=== PATIENT | female | born 1975 | race Caucasian/White ===

== ENCOUNTER 2020-07-13 11:09 | Emergency (ER) | payer MEDICAID, SELFPAY ==
[2020-07-13 11:18] VITALS: BP 162/101; PULSE 90; RESP 16; TEMP 36.8; O2SAT 95
--- NOTE | 2020-07-13 11:36 | ED.GENADUL_ITS ---
Discharge Plan Disposition Patient Disposition: HOME Condition: Stable Discharge Details Clinical Impression: Cough Primary Care Provider: Bennett Kebede ED Provider: Keenan Wiggins Home Meds and New Rx's Prescriptions: New prednisone 20 mg tablet 60 mg PO DAILY 4 Days Qty: 12 RF: 0 Continued methadone 10 mg/mL Concentrate 96 mg PO DAILY RF: 0 carisoprodol 350 mg Tablet 350 mg PO DAILY RF: 0 gabapentin 600 mg Tablet 600 mg PO TID RF: 0 metoprolol succinate 50 mg Tablet Extended Release 24 Hr 50 mg PO DAILY RF: 0 famotidine 40 mg Tablet 40 mg PO DAILY PRNRF: 0 dextroamphetamine-amphetamine [Adderall] 20 mg Tablet 20 mg PO TID RF: 0 montelukast 10 mg Tablet 10 mg PO DAILY RF: 0 zolpidem [Ambien] 5 mg Tablet 5 mg PO .QHS RF: 0 metoprolol succinate 25 mg Tablet Extended Release 24 Hr 25 mg PO DAILY RF: 0 albuterol sulfate [ProAir HFA] 90 mcg/actuation Hfa Aerosol Inhaler 2 puff INHALATION .Q4-6HRS PRNRF: 0 lamotrigine 100 mg Tablet 100 mg PO .QHS RF: 0 diazepam 5 mg Tablet 5 mg PO DAILY PRNRF: 0 buspirone 15 mg Tablet 15 mg PO TID RF: 0 Dulera 200-5 mcg/actuation Hfa Aerosol Inhaler 2 puff INHALATION BID RF: 0 Discharge Instructions Instructions: Hypokalemia (ED), Acute Cough (ED) Additional Instructions: follow up with your primary care provider within a week and have your potassium level rechecked if you feel more ill, have worsening shortness of breath return to the emergency department Medical Decision Making 45 yo female comes in with complaint of not feeling well for a day and feeling as though she has had a fever though hasn't checked her temperature. She denies travel, abdominal pain, rashes, and denies alcohol or drug use, does smoke. She appears anxious on exam and is speaking in full sentences in no respiratory distress. Has very mild apical wheezing otherwise clear lungs without murmurs. Suspect part of her feeling unwell could be from her anxiety based on her exam. Will obtain cxr to evaluate for infiltrate, evaluate for anemia and electrolyte disorders, and also obtain covid19 and influenza testing. Has no fever here and appears well, doubt sepsis, director of student life infection, intrabdominal or spinal pathology. pt remains stable, labs show mild low potassium and mild increase in hgb which could be from mild dehydration. Xray and flu negative. Will d/c and advised to f/u with pcp with return precautions Differential Diagnosis Differential Diagnosis: bronchitis, pna, influenza, covid19 Imaging Data Radiologic Study: Attestation: I personally reviewed and interpreted this imaging study as follows: Imaging: X-Ray Radiologist's impression: no acute findings Lab Data Lab results reviewed: Yes I reviewed the patient's lab results. HPI General Mode of arrival: ambulatory . Date/Time Provider Initiated Documentation: 07/13/20 11:12 . Limitations to Documentation: no limitations . Information obtained by: patient . History of Present Illness 45 year old F presents to the emergency department with the chief complaint of not feeling well, described as mild, Patient started experiencing this day(s) (1) and it has been constant. No relieving factors improve symptom(s), No exacerbating factors reported . Patient notes cough. Patient did receive the following treatments prior to arrival, none Related Data Home Medications Medication Instructions Recorded Confirmed Dulera 2 puff INHALATION BID 07/13/20 07/13/20 albuterol sulfate [ProAir HFA] 2 puff INHALATION .Q4-6HRS PRN 07/13/20 07/13/20 buspirone 15 mg PO TID 07/13/20 07/13/20 carisoprodol 350 mg PO DAILY 07/13/20 07/13/20 dextroamphetamine-amphetamine 20 mg PO TID 07/13/20 07/13/20 [Adderall] diazepam 5 mg PO DAILY PRN 07/13/20 07/13/20 famotidine 40 mg PO DAILY PRN 07/13/20 07/13/20 gabapentin 600 mg PO TID 07/13/20 07/13/20 lamotrigine 100 mg PO .QHS 07/13/20 07/13/20 methadone 96 mg PO DAILY 07/13/20 07/13/20 metoprolol succinate 25 mg PO DAILY 07/13/20 07/13/20 metoprolol succinate 50 mg PO DAILY 07/13/20 07/13/20 montelukast 10 mg PO DAILY 07/13/20 07/13/20 prednisone 60 mg PO DAILY 4 Days #12 tab 07/13/20 zolpidem [Ambien] 5 mg PO .QHS 07/13/20 07/13/20 Previous Rx's Medication Instructions Recorded prednisone 60 mg PO DAILY 4 Days #12 tab 07/13/20 Allergies Allergy/AdvReac Type Severity Reaction Status Date / Time bee Allergy Uncoded 07/13/20 11:23 General Stated Complaint: GenMedical MILLICENT: 3 Review of Systems All systems reviewed & are unremarkable except as noted in HPI and below Constitutional Constitutional: Denies chills and Denies weakness Cardiovascular Cardiovascular: Denies chest pain and Denies dyspnea Respiratory Respiratory: Denies dyspnea Gastrointestinal Gastrointestinal: Denies abdominal pain, Denies nausea and Denies vomiting Genitourinary Genitourinary: Denies dysuria Musculoskeletal Musculoskeletal: Denies joint swelling Integumentary/Breasts Skin/Breast: Denies rash Neurologic Neurologic: Denies weakness Psychiatric Psychiatric: Denies depression PFSH Social History Smoking/Tobacco Use Status: Current every day Tobacco Type: cigarettes Alcohol Intake: never Substance use type: does not use Exam Const General: anxious Orientation: alert HENMT Head: normal to inspection Ears: external ears normal General nose exam: external nose normal Mouth: moist mucous membranes Eyes General: appearance normal, both eyes and all related structures Neck Neck: normal visual inspection Resp Effort & Inspection: normal respiratory effort and able to speak in complete sentences Cardio Rate: regular rate Skin General skin exam: no rashes or lesions noted Neuro General: patient alert and patient oriented x3 Extrem General: normal to inspection Psych Mental Status: mental status grossly normal Course Vital Signs Vital signs: Vital Signs Temperature 36.8 C 07/13/20 11:18 Pulse 90 07/13/20 11:18 Respiratory Rate 16 07/13/20 11:18 Blood Pressure 162/101 H 07/13/20 11:18 Pulse Oximetry 95 07/13/20 11:18 Temperature 36.8 C 07/13/20 11:18 Temperature Source Oral 07/13/20 11:18 Pulse 90 07/13/20 11:18 Respiratory Rate 16 07/13/20 11:18 Respiratory Effort Non-Labored 07/13/20 11:18 Blood Pressure 162/101 H 07/13/20 11:18 Blood Pressure Position Sitting 07/13/20 11:18 Pulse Oximetry 95 07/13/20 11:18 Oxygen Delivery Method Room Air 07/13/20 11:18 Oxygen Flow Rate 0 07/13/20 11:18 Pain Level 0 07/13/20 11:18
[2020-07-13] MEDS: predniSONE 20 MG TAB 60 MG PO (11:45)
--- NOTE | 2020-07-13 11:55 | DI.RAD_ITS ---
EXAM: XR PORTABLE CHEST AP CLINICAL HISTORY: cough. TECHNIQUE: 2D digital imaging was performed. COMPARISON: No exams were available for comparison FINDINGS: LUNGS: Clear. No pleural abnormality seen. HEART: Normal. MEDIASTINUM: Normal. OTHER FINDINGS: None. IMPRESSION: No acute pulmonary findings. DATA REPOSITORY: RADIATION DOSE DELIVERED: Total DLP
[2020-07-13 11:58] VITALS: RESP 16
[2020-07-13 12:07] LABS: Abs Immature Grans 0.03 10^3/uL (0.0-0.06); Absolute Basophil Count 0.07 10^3/uL (0.0-0.2); Absolute Lymphocyte Count 1.71 10^3/uL (1.2-3.4); Absolute Monocyte Count 0.54 10^3/uL (0.1-0.8); Absolute Neutrophil Count 6.57 10^3/uL (1.2-6.7); Basophils % 0.8; Eosinophils % 1.1; HCT 49.7 % (36.0-46.0); HGB 16.4 g/dL (11.2-15.7); Immature Grans % 0.3; MCH 32.1 pg (27.0-33.0); MCV 97.3 fL (80-95); MPV 9.8 fL (8.0-11.0); Neutrophils % 72.8; Nucleated RBC 0 %; Platelet Count 227 10^3/uL (130-400); RBC 5.11 10^6/uL (3.93-5.22); RDW 12.3 % (11.7-14.6); RDW-SD 44.4 fL; WBC 9.02 10^3/uL (4.4-10.8)
--- NOTE | 2020-07-13 12:07 | DI.VRAD_ITS ---
PROCEDURE INFORMATION: Exam: XR Chest, 1 View Exam date and time: 07/13/2020 11:42 AM Age: 45 years old Clinical indication: Cough TECHNIQUE: Imaging protocol: XR of the chest Views: 1 view. COMPARISON: No relevant prior studies available. FINDINGS: Lungs: The lungs are normally expanded and clear. Pleural space: Normal. Heart/Mediastinum: Normal heart and cardiomediastinal silhouette. Vasculature: Normal pulmonary vessel caliber. Normal aorta. Bones/joints: The bones are intact. IMPRESSION: No acute disease or suspicious finding. Dictated and Authenticated by: Jermain Cifuentes MD. Ordering:KIMBERLYN Hussein MD
[2020-07-13 12:20] LABS: ALT 25 U/L (14-59); AST 37 U/L (15-37); Albumin 4.3 g/dL (3.4-5.0); Alkaline Phosphatase 113 U/L (46-116); Anion Gap 4.9 mmol/L (3-11); BUN 14 mg/dL (7-18); Bilirubin, Total 0.6 mg/dL (0.2-1.0); CO2 34.1 mmol/L (21.0-32.0); CREATININE 1.04 mg/dL (0.55-1.02); Calcium 9.7 mg/dL (8.5-10.1); Chloride 99 mmol/L (98-107); Glucose 105 mg/dL (74-106); Potassium 3.1 mmol/L (3.5-5.1); Sodium 138 mmol/L (136-145); Total Protein 8.2 g/dL (6.4-8.2)
[2020-07-13 12:46] VITALS: BP 174/102; PULSE 83; RESP 16; O2SAT 98
[2020-07-15 23:31] LABS: Patient Race White; SARS-CoV-2 RNA Undetected (Undetected); SARS-CoV-2 Specimen Source Nasopharynx
--- NOTE | 2020-07-16 09:21 | NUR.NOTE ---
07/16/20 @ 0920. mother to have patient call ed for test results.
--- NOTE | 2020-07-18 10:08 | NUR.NOTE ---
Nursing Note: Left VM for pt to call [facility] @ [phone] for results. No answer on home, cell, or mother's phone number.
== END 2020-07-13 12:51 | disposition home or self-care (01) ==
LOC: ER 12:53
PROVIDERS: Emergency Provider Emergency Medicine; PCP Internal Medicine
DX: R05 Cough (principal); E87.6 Hypokalemia; E86.0 Dehydration; F17.210 Nicotine dependence, cigarettes, uncomplicated; Z03.818 Encounter for observation for suspected exposure to other biological agents ruled out
CPT/HCPCS: 36415; 80053; 87449; 99284; U0003; 71045; 85025; J7512

== ENCOUNTER 2021-09-07 14:59 | Emergency (ER) | payer MEDICAID, SELFPAY ==
[2021-09-07 15:14] VITALS: BP 135/98; PULSE 72; RESP 20; TEMP 36.6; O2SAT 96
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
== END 2021-09-07 17:11 | disposition home or self-care (01) ==
PROVIDERS: Emergency Provider Nurse Practitioner Family; PCP Internal Medicine
DX: F32.A Depression, unspecified (principal); F41.9 Anxiety disorder, unspecified; F43.10 Post-traumatic stress disorder, unspecified
CPT/HCPCS: 99284; 99283

== ENCOUNTER 2021-09-15 15:01 | Emergency (ER) | payer MEDICAID, SELFPAY ==
[2021-09-15 15:08] VITALS: BP 154/102; PULSE 70; RESP 10; TEMP 37.1; O2SAT 100
--- NOTE | 2021-09-15 15:20 | ED.GENADUL_ITS ---
Discharge Plan Disposition Patient Disposition: HOME Condition: Stable Discharge Details Clinical Impression: Encounter for medication refill Primary Care Provider: Sameera Augustine ED Provider: Macho Sinclair Home Meds and New Rx's Prescriptions: New carisoprodol 350 mg tablet 350 mg PO QDAY 7 Days Qty: 7 RF: 0 diazepam 5 mg tablet 5 mg PO QHS PRN (Reason: anxiety) 7 Days Qty: 7 RF: 0 dextroamphetamine-amphetamine 20 mg tablet 20 mg PO BID 7 Days Qty: 14 RF: 0 gabapentin 600 mg tablet 600 mg PO TID 7 Days Qty: 21 RF: 0 Continued methadone 10 mg/mL Concentrate 96 mg PO DAILY RF: 0 famotidine 40 mg Tablet 40 mg PO DAILY PRNRF: 0 montelukast 10 mg Tablet 10 mg PO DAILY RF: 0 metoprolol succinate 25 mg Tablet Extended Release 24 Hr 25 mg PO DAILY RF: 0 albuterol sulfate [ProAir HFA] 90 mcg/actuation Hfa Aerosol Inhaler 2 puff INHALATION .Q4-6HRS PRNRF: 0 buspirone 15 mg Tablet 15 mg PO TID RF: 0 Dulera 200-5 mcg/actuation Hfa Aerosol Inhaler 2 puff INHALATION BID RF: 0 ipratropium-albuterol 0.5 mg-3 mg(2.5 mg base)/3 mL Solution For Nebulization INHALATION .Q6HRS PRNRF: 0 rizatriptan 10 mg Tablet 10 mg PO PRN PRNRF: 0 No Action gabapentin 600 mg Tablet 600 mg PO TID RF: 0 metoprolol succinate 50 mg Tablet Extended Release 24 Hr 50 mg PO DAILY RF: 0 zolpidem [Ambien] 5 mg Tablet 5 mg PO .QHS RF: 0 diazepam 5 mg tablet 5 mg PO QHS PRN (Reason: anxiety) Qty: 7 RF: 0 Discharge Instructions Additional Instructions: Follow-up with on September 22 as planned. Continue your routine medications. Medical Decision Making 46-year-old female presents for concerned that she is about to run out of her medications. She has moved from [place] to [facility] and has follow-up to establish care with Dr. Daniel on September 22. She requests refills of Carisprodol, Adderall, gabapentin, diazepam. We discussed the importance of her following up with Dr. Cochran and no longer utilizing the ER for medication refill. Nonetheless, I do feel is reasonable to continue her on her longstanding medications for this 1 week period. HPI General Mode of arrival: ambulatory . Date/Time Provider Initiated Documentation: 09/15/21 15:02 . Limitations to Documentation: no limitations . Information obtained by: patient . History of Present Illness 46 year old F presents to the emergency department with the chief complaint of Out of medications, primary care follow-up on September 22. no distress., described as similar to prior episodes, No relieving factors improve symptom(s), Patient notes no other symptoms.. Patient did receive the following treatments prior to arrival, none Related Data Home Medications Medication Instructions Recorded Confirmed Dulera 2 puff INHALATION BID 07/13/20 09/15/21 albuterol sulfate [ProAir HFA] 2 puff INHALATION .Q4-6HRS PRN 07/13/20 09/15/21 buspirone 15 mg PO TID 07/13/20 09/15/21 famotidine 40 mg PO DAILY PRN 07/13/20 09/15/21 gabapentin 600 mg PO TID 07/13/20 09/15/21 ipratropium-albuterol ml INHALATION .Q6HRS PRN 07/13/20 methadone 96 mg PO DAILY 07/13/20 09/15/21 metoprolol succinate 25 mg PO DAILY 07/13/20 09/15/21 metoprolol succinate 50 mg PO DAILY 07/13/20 09/15/21 montelukast 10 mg PO DAILY 07/13/20 09/15/21 rizatriptan 10 mg PO PRN PRN 07/13/20 09/15/21 zolpidem [Ambien] 5 mg PO .QHS 07/13/20 09/07/21 diazepam 5 mg PO QHS PRN #7 tab 09/07/21 09/15/21 carisoprodol 350 mg PO QDAY 7 Days #7 tab 09/15/21 dextroamphetamine-amphetamine 20 mg PO BID 7 Days #14 tab 09/15/21 diazepam 5 mg PO QHS PRN 7 Days #7 tab 09/15/21 gabapentin 600 mg PO TID 7 Days #21 tab 09/15/21 Previous Rx's Medication Instructions Recorded diazepam 5 mg PO QHS PRN #7 tab 09/07/21 carisoprodol 350 mg PO QDAY 7 Days #7 tab 09/15/21 dextroamphetamine-amphetamine 20 mg PO BID 7 Days #14 tab 09/15/21 diazepam 5 mg PO QHS PRN 7 Days #7 tab 09/15/21 gabapentin 600 mg PO TID 7 Days #21 tab 09/15/21 Allergies Allergy/AdvReac Type Severity Reaction Status Date / Time bee venom protein (honey bee) Allergy Swelling/Ed Unverified 09/15/21 15:13 sage General Stated Complaint: GenMedical MILLICENT: 4 Review of Systems Narrative: Denies illness. No mood disruption. 4 systems reviewed and otherwise negative PFSH All Active Problems (Updated 09/15/21 @ 15:23 by Macho Sinclair MD) Depression (Chronic) Encounter for medication refill (Acute) Social History Smoking/Tobacco Use Status: Current every day Tobacco Type: cigarettes Smoking risk assessment performed?: Yes Alcohol Intake: never Drug use: Daily Substance use type: marijuana Do you feel safe at home: Yes Do you feel safe in your relationship?: Yes Exam Narrative Exam Narrative: GEN: awake, alert, oriented 3. Pleasant, well groomed, interactive. HEAD: Normocephalic, atraumatic EYES: PERRL, EOMI NECK: Full ROM CHEST/RESP: No respiratory distress EXT: Full ROM Neuro: Grossly normal neurologic exam, conversant, interactive. Psych: Speech fluent, thoughts congruent, affect normal Course Vital Signs Vital signs: Vital Signs Temperature 37.1 C 09/15/21 15:08 Pulse 70 09/15/21 15:08 Respiratory Rate 10 L 09/15/21 15:08 Blood Pressure 154/102 H 09/15/21 15:08 Pulse Oximetry 100 09/15/21 15:08 Temperature 37.1 C 09/15/21 15:08 Temperature Source Temporal Artery Scan 09/15/21 15:08 Pulse 70 09/15/21 15:08 Respiratory Rate 10 L 09/15/21 15:08 Respiratory Effort Non-Labored 09/15/21 15:11 Blood Pressure 154/102 H 09/15/21 15:08 Blood Pressure Position Sitting 09/15/21 15:08 Pulse Oximetry 100 09/15/21 15:08 Oxygen Delivery Method Room Air 09/15/21 15:08 Oxygen Flow Rate 0 09/15/21 15:08 Pain Level 0 09/15/21 15:08
== END 2021-09-15 15:34 | disposition home or self-care (01) ==
PROVIDERS: Emergency Provider Emergency Medicine; PCP Internal Medicine
DX: F32.A Depression, unspecified (principal)
CPT/HCPCS: 99283

== ENCOUNTER 2022-02-28 16:09 | Emergency (ER) | payer MEDICAID, SELFPAY ==
[2022-02-28 16:14] VITALS: BP 156/107; PULSE 68; RESP 16; TEMP 36.9; O2SAT 96
--- OUTSIDE RECORDS SUMMARY | 2022-02-28 16:20 | XMS_ITS | CCD ---
:1975 Author Care Team Providers Name Role Phone KRISTIN HADDAD Attending Physician Unavailable TAWANNA SCHWARTZ Er Physician 1 Unavailable RE Willams Registered Nurse Unavailable VAMSI Castellon Registered Nurse Unavailable Vital Signs Vital Sign Value Unit Date/Time Recent/Initial? BMI (Body Mass Index) 19.99 kg/m^2 08/20/2021 18:38 In itial VS Weight Measured 105.82 lbs 08/20/2021 18:38 Initial VS Height 61 in 08/20/2021 18:38 Initial VS BSA (Body Surface Area) 1.44 m^2 08/20/2021 18:38 Initial VS BP Systolic 160 mmHg 08/20/2021 18:38 Initial VS BP Diastolic 89 mmHg 08/20/2021 18:38 Initial VS Heart Rate 62 bpm 08/20/2021 18:38 Initial VS O2 % BldC Oximetry 98 % 08/20/2021 18:38 Initi al VS Body Temperature 36.8 degrees 08/20/2021 18:38 Initial VS Allergies Allergy Code Allergy Type Reaction Status No Known Environmental 0 No known environmental Active Allergies allergies No Known Drug Allergies 0 No known drug allergies Active Procedures Unknown or Not Available. History of Immunizations Unknown or Not Available. Problems Problem Code Start Date Resolved Date Status PTSD [id number] 08/20/2021 Resolved Anxiety [id number] 08/20/2021 Resolved Results Unknown or Not Available. Active Medications Medications Administered During Visit Medication Dose Units Frequency Route Date/Time of L ast Dose HydrOXYzine PAMOATE CAPSULE: 50 MG X1 PO 08/20/2021 19:26 25MG Encounters Encounter Diagnosis Diagnosis Code Start Date Adjustment disorder, unspecified [id number] Social History Smoking Status Code Start Date End Date Unknown if ever smoked [id number] Patient Decision Aids Unknown or Not Available. Discharge Instructions You were admitted to [facility] on 08/20/2021 18:34 with a principal diagnosis of Adjustment disorder, unspecified You were discharged from [facility] on 08/20/2021 20:28 Should you have any questions prior to d ischarge, please contact a member of your healthcare team. If you have left the ho spital and have any questions, please contact your primary care physician. Chief Complaint and Reason For Visit Chief Complaint Date of Onset DETOX AND EVAL Function Status Unknown or Not Available. Plan of Care Unknown or Not Available. Referral/Transition of Care Unknown or Not Available.
[2022-02-28 16:25] VITALS: RESP 16
--- NOTE | 2022-02-28 16:30 | DI.RAD_ITS ---
Exam(s) XR PORTABLE CHEST AP EXAM: XR PORTABLE CHEST AP CLINICAL HISTORY: cough TECHNIQUE: 2D digital imaging was performed. COMPARISON: CR,XR XR PORTABLE CHEST AP from 07/13/2020 FINDINGS: LUNGS: Clear. No pleural abnormality seen. HEART: Normal. AORTA: Normal. BONES: Unremarkable for age. Soft tissues: Unremarkable. IMPRESSION: No acute findings. DATA REPOSITORY: RADIATION DOSE DELIVERED:
--- NOTE | 2022-02-28 16:37 | ED.GENADUL_ITS ---
Discharge Plan Disposition Patient Disposition: HOME Condition: Stable Discharge Details Clinical Impression: Wheezing, Cough Primary Care Provider: Reddy Cochran ED Provider: Keenan Wiggins Home Meds and New Rx's Prescriptions: New doxycycline hyclate 100 mg tablet 100 mg PO BID Qty: 14 0RF prednisone 20 mg tablet 60 mg PO DAILY 4 Days Qty: 12 0RF Continued methadone 10 mg/mL Concentrate 96 mg PO DAILY gabapentin 600 mg Tablet 600 mg PO TID metoprolol succinate 50 mg Tablet Extended Release 24 Hr 50 mg PO DAILY famotidine 40 mg Tablet 40 mg PO DAILY PRN montelukast 10 mg Tablet 10 mg PO DAILY metoprolol succinate 25 mg Tablet Extended Release 24 Hr 25 mg PO DAILY albuterol sulfate [ProAir HFA] 90 mcg/actuation Hfa Aerosol Inhaler 2 puff INHALATION .Q4-6HRS PRN buspirone 15 mg Tablet 15 mg PO TID Dulera 200-5 mcg/actuation Hfa Aerosol Inhaler 2 puff INHALATION BID ipratropium-albuterol 0.5 mg-3 mg(2.5 mg base)/3 mL Solution For Nebulization 1 ml INHALATION .Q6HRS PRN diazepam 5 mg tablet 5 mg PO QHS PRN (Reason: anxiety) Qty: 7 0RF dextroamphetamine-amphetamine 20 mg tablet 20 tab PO BID Label Comments: TAKE ONE TABLET BY MOUTH TWICE A DAY Discharge Instructions Instructions: Acute Cough (ED) Additional Instructions: follow up with your primary care provider if not better within a week if you feel more ill, have worsening trouble breathing or fevers return to the emergency department Medical Decision Making 47 yo female with hx of asthma, anxiety, who comes in with complaints of several days of cough that is constant and feels short of breath when coughing. She denies fevers or chills, states a home antigen test for covid yesterday was negative. She denies any chest pain. She arrives speaking in full sentences intermittently coughing. She has no leg swelling or calf tenderness, no jvd, she does have diffuse wheezing on lung exam in both lungs, no murmurs. Her symptoms seem most likely from her underlying asthma and likely viral uri. Will treat with duoneb and prednisone. Will also obtain xray and covid test. She has stable vitals and appears well so do not feel labs indicated, no findings on exam to suggest entities such as endocarditia. No findings to suggest dvt and no hypoxia or tachycardia so doubt PE. xray unremarkable and she feels better and requesting d/c. Vitals stable. Will cover for a possible copd exacerbation with doxy and advised to f/u with pcp and return precautions given Differential Diagnosis Differential Diagnosis: asthma, copd, uri, covid, pneumonia Imaging Data Radiologic Study: Attestation: I personally reviewed and interpreted this imaging study as follows: Imaging: X-Ray Radiologist's impression: PROCEDURE INFORMATION: Exam: XR Chest Exam date and time: 02/28/2022 4:31 PM Age: 47 years old Clinical indication: Cough TECHNIQUE: Imaging protocol: XR of the chest. Views: 1 view. COMPARISON: XR PORTABLE CHEST AP 07/13/2020 11:33 AM FINDINGS: Lungs: Clear lungs. Pleural spaces: No sizable pleural effusion. No pneumothorax. Heart/Mediastinum: Cardiomediastinal silhouette is within normal limits. Bones/joints: No acute displaced fracture or dislocation. IMPRESSION: No acute cardiopulmonary process. HPI General Mode of arrival: ambulatory . Date/Time Provider Initiated Documentation: 02/28/22 16:14 . Limitations to Documentation: no limitations . Information obtained by: patient . History of Present Illness 47 year old F presents to the emergency department with the chief complaint of cough, described as moderate, Patient reports no radiation. Patient started experiencing this day(s) (3) and it has been constant. No relieving factors improve symptom(s), No exacerbating factors reported . Patient notes denies chest pain and fever/chills. Patient did receive the following treatments prior to arrival, none Related Data Home Medications Medication Instructions Recorded Confirmed albuterol sulfate 90 mcg/actuation 2 puff inhalation .Q4-6HRS PRN 07/13/20 02/28/22 aerosol inhaler (ProAir HFA) buspirone 15 mg tablet 15 mg PO TID 07/13/20 02/28/22 famotidine 40 mg tablet 40 mg PO DAILY PRN 07/13/20 02/28/22 gabapentin 600 mg tablet 600 mg PO TID 07/13/20 02/28/22 ipratropium 0.5 mg-albuterol 3 mg 1 ml inhalation .Q6HRS PRN 07/13/20 02/28/22 (2.5 mg base)/3 mL nebulization soln methadone 10 mg/mL oral concentrate 96 mg PO DAILY 07/13/20 02/28/22 metoprolol succinate 25 mg 25 mg PO DAILY 07/13/20 02/28/22 tablet,extended release 24 hr metoprolol succinate 50 mg 50 mg PO DAILY 07/13/20 02/28/22 tablet,extended release 24 hr mometasone-formoterol HFA 200 2 puff inhalation BID 07/13/20 02/28/22 mcg-5 mcg/actuation aerosol inhaler (Dulera) montelukast 10 mg tablet 10 mg PO DAILY 07/13/20 02/28/22 diazepam 5 mg tablet 5 mg PO QHS PRN anxiety #7 tabs 09/07/21 02/28/22 dextroamphetamine-amphetamine 20 20 tab PO BID 02/28/22 02/28/22 mg tablet doxycycline hyclate 100 mg tablet 100 mg PO BID #14 tabs 02/28/22 prednisone 20 mg tablet 60 mg PO DAILY 4 days #12 tabs 02/28/22 Previous Rx's Medication Instructions Recorded diazepam 5 mg tablet 5 mg PO QHS PRN anxiety #7 tabs 09/07/21 doxycycline hyclate 100 mg tablet 100 mg PO BID #14 tabs 02/28/22 prednisone 20 mg tablet 60 mg PO DAILY 4 days #12 tabs 02/28/22 Allergies Allergy/AdvReac Type Severity Reaction Status Date / Time bee venom protein (honey bee) Allergy Swelling/Ed Unverified 02/28/22 16:21 sage General Stated Complaint: SOB MILLICENT: 4 Review of Systems All systems reviewed & are unremarkable except as noted in HPI and below Constitutional Constitutional: Denies chills Cardiovascular Cardiovascular: Denies chest pain Gastrointestinal Gastrointestinal: Denies abdominal pain, Denies nausea and Denies vomiting Integumentary/Breasts Skin/Breast: Denies rash PFSH All Active Problems (Updated 02/28/22 @ 17:39 by Keenan Wiggins MD) Wheezing (Acute) Cough (Acute) Social History Smoking/Tobacco Use Status: Current every day Tobacco Type: cigarettes Smoking risk assessment performed?: Yes Alcohol Intake: never Drug use: Daily Substance use type: marijuana Do you feel safe at home: Yes Do you feel safe in your relationship?: Yes Exam Const General: no acute distress Orientation: alert HENMT Head: normal to inspection Ears: external ears normal General nose exam: external nose normal Mouth: moist mucous membranes Eyes General: appearance normal, both eyes and all related structures Neck Neck: normal visual inspection Resp Effort & Inspection: normal respiratory effort, able to speak in complete sentences and audible wheezes Cardio Rate: regular rate Skin General skin exam: no rashes or lesions noted Neuro General: patient alert and patient oriented x3 Extrem General: normal to inspection Psych Mental Status: mental status grossly normal Course Vital Signs Vital signs: Vital Signs Temperature 36.9 C 02/28/22 16:14 Pulse 68 02/28/22 16:14 Respiratory Rate 16 02/28/22 16:14 Blood Pressure 156/107 H 02/28/22 16:14 Pulse Oximetry 96 02/28/22 16:14 Temperature 36.9 C 02/28/22 16:14 Temperature Source Temporal Artery Scan 02/28/22 16:14 Pulse 68 02/28/22 16:14 Respiratory Rate 16 02/28/22 16:25 Respiratory Effort 02/28/22 16:25 Respiratory Depth Normal 02/28/22 16:25 Respiratory Pattern Normal 02/28/22 16:25 Blood Pressure 156/107 H 02/28/22 16:14 Blood Pressure Position Sitting 02/28/22 16:14 Pulse Oximetry 96 02/28/22 16:14 Oxygen Delivery Method Room Air 02/28/22 16:14 Oxygen Flow Rate 0 02/28/22 16:14 Pain Level 0 02/28/22 16:14
[2022-02-28] MEDS: predniSONE 20 MG TAB 60 MG PO (16:51)
--- NOTE | 2022-02-28 16:51 | DI.VRAD_ITS ---
PROCEDURE INFORMATION: Exam: XR Chest Exam date and time: 02/28/2022 4:31 PM Age: 47 years old Clinical indication: Cough TECHNIQUE: Imaging protocol: XR of the chest. Views: 1 view. COMPARISON: XR PORTABLE CHEST AP 07/13/2020 11:33 AM FINDINGS: Lungs: Clear lungs. Pleural spaces: No sizable pleural effusion. No pneumothorax. Heart/Mediastinum: Cardiomediastinal silhouette is within normal limits. Bones/joints: No acute displaced fracture or dislocation. IMPRESSION: No acute cardiopulmonary process. Dictated and Authenticated by: Juliocesar Rahman MD. Ordering:KIMBERLYN uHssein MD
[2022-02-28 16:52] VITALS: RESP 16; RESP 4; RESP 7
[2022-02-28] MEDS: Albuterol/Ipratropium 3 ML UPD VIAL UPD (16:52)
[2022-02-28 16:59] LABS: Source Nasal/Nares
[2022-02-28] MEDS: Doxycycline Hyclate 100 MG CAP PO (17:44)
[2022-02-28 17:50] VITALS: RESP 16
[2022-02-28 17:53] LABS: COVID-19 PCR Negative (Negative)
== END 2022-02-28 17:48 | disposition home or self-care (01) ==
PROVIDERS: Emergency Provider Emergency Medicine; PCP Family Medicine
DX: R05.1 Acute cough (principal); R06.2 Wheezing; R06.02 Shortness of breath; F17.210 Nicotine dependence, cigarettes, uncomplicated
CPT/HCPCS: 87635; 94640; 99283; 71045; J7512; J7620